=== PATIENT | female | born 1975 | race Caucasian/White ===

== ENCOUNTER 2017-02-05 11:31 | Emergency (ER) | payer OTHER ==
[2017-02-05] MEDS ORDERED: XANAX0.5 MG PO (11:35)
[2017-02-05] MEDS ORDERED: PREDNISONE50 MG PO (12:32)
[2017-02-05] MEDS ORDERED: CYCLOBENZAPRINE10 MG PO (12:32)
== END 2017-02-05 12:35 | disposition home or self-care (01) ==
LOC: ED 11:31
DX: M54.41 Lumbago with sciatica, right side (principal); Z88.6 Allergy status to analgesic agent

== ENCOUNTER 2018-06-07 12:22 | Emergency (ER) | payer SELFPAY ==
[~2018-06-07] VITALS: Ht 160 cm; Wt 84.8 kg
[~2018-06-07 12:22] MED LIST: CYCLOBENZAPRINE10 MG PO; PREDNISONE50 MG PO; XANAX0.5 MG PO
[2018-06-07 12:59] LABS: BASO # 0.1 10*3/uL (0.0-0.1); BASO % 2.2 % (0.0-1.0); EOS # 0.1 10*3/uL (0.0-0.4); EOS % 2.7 % (1.0-4.0); HEMOGLOBIN 11.6 g/dl (12.0-16.0); LYMPH # 1.5 10*3/uL (1.3-4.4); LYMPH % 34.1 % (27.0-41.0); MEAN CELL VOLUME 99.4 fl (81.0-99.0); MEAN CORPUSCULAR HGB CONC 33.1 g/dl (33.0-37.0); MEAN PLATELET VOLUME 9.7 fl (9.6-12.3); MONO # 0.5 10*3/uL (0.1-1.0); MONO % 10.1 % (3.0-9.0); NEUT # 2.3 10*3/uL (2.3-7.9); NEUT % 50.5 % (47.0-73.0); PLATELET COUNT AUTOMATED 232 10*3/uL (130-400); RED BLOOD COUNT 3.52 10*6/uL (4.10-5.10); RED CELL DISTRI WIDTH 13.5 % (0-14.5); WHITE BLOOD COUNT 4.5 10*3/uL (4.8-10.8)
[2018-06-07 13:20] LABS: ALBUMIN 3.2 gm/dl (3.1-4.5); ALKALINE PHOSPHATASE 110 U/L (45-117); BUN 11 mg/dl (7-24); CHLORIDE 110 mmol/L (98-107); CREATININE 0.78 mg/dL (0.55-1.02); LIPASE 182 U/L (73-393); POTASSIUM 3.9 mmol/L (3.5-5.1); SGOT/AST 13 IU/L (3-35); SGPT/ALT 18 U/L (12-78); SODIUM 143 mmol/L (136-145); TOTAL PROTEIN 6.1 gm/dL (6.4-8.2)
[2018-06-07 13:21] LABS: TROPONIN I < 0.015 ng/ml (<0.045)
[2018-06-07 14:05] LABS: BILIRUBIN NEGATIVE (NEGATIVE); BLOOD 3+ (NEGATIVE); CLARITY CLOUDY (CLEAR); COLOR YELLOW (YELLOW); GLUCOSE NEGATIVE (NEGATIVE); KETONE NEGATIVE (NEGATIVE); LEUKO ESTERASE NEGATIVE (NEGATIVE); NITRITE NEGATIVE (NEGATIVE); SPECIFIC GRAVITY 1.025 (1.005-1.030); UROBILINOGEN 0.2 E.U./dl (0.2-1.0)
[2018-06-07 14:25] LABS: BACTERIA 2+; RBC TNTC rbc/hpf (0-2)
[2018-06-07] MEDS ORDERED: ZOFRAN ODT4 MG SL (14:42)
== END 2018-06-07 15:01 | disposition home or self-care (01) ==
LOC: ED 12:22
PROVIDERS: Emergency Medicine
DX: K52.9 Noninfective gastroenteritis and colitis, unspecified (principal); R50.9 Fever, unspecified; Z88.6 Allergy status to analgesic agent; Z79.899 Other long term (current) drug therapy